=== PATIENT | male | born 1990 | race Caucasian/White ===

== ENCOUNTER 2021-12-25 21:08 | Emergency (ER) | payer SELFPAY ==
[~2021-12-25] VITALS: Ht 160 cm; Wt 87.1 kg
[2021-12-25 21:51] VITALS: BP 153/109
--- NOTE | 2021-12-25 22:01 | NUR ---
PATIENT AMBULATED TO LOBBY IN STABLE CONDTION
[2021-12-25] MEDS ORDERED: ACET-10509 PO (22:41)
[2021-12-25] MEDS ORDERED: AMOX500C25 PO (22:41)
[2021-12-25] MEDS ORDERED: NAPR-54 PO (22:41)
--- NOTE | 2021-12-25 23:00 | NUR ---
SEEN AND EXAMINED BY JONO
[2021-12-25 23:10] VITALS: BP 153/109
--- NOTE | 2021-12-25 23:10 | NUR ---
Patient discharged with v/s stable. Written and verbal after care instructions given and explained. Patient alert, oriented and verbalized understanding of instructions. Ambulatory with steady gait. All questions addressed prior to discharge. ID band removed. Patient advised to follow up with PMD. Rx of TYLENOL, AMOXICILLIN, NAPROSYN given. Patient educated on indication of medication including possible reaction and side effects. Opportunity to ask questions provided and answered.
== END 2021-12-25 23:10 | disposition home or self-care (01) ==
LOC: MED 21:08
DX: K08.89 Other specified disorders of teeth and supporting structures (principal); Z79.899 Other long term (current) drug therapy
CPT/HCPCS: 99283